=== PATIENT | female | born 1945 | race Caucasian/White ===

== ENCOUNTER 2016-06-13 04:58 | Emergency (ER) | payer OTHER ==
--- NOTE | 2016-06-13 05:21 | ED Physician Documentation ---
General Adult - HISTORIAN Historian: patient - HPI Stated Complaint: difficulty swallowing Chief Complaint: General Adult Timing: still present Severity: moderate Further Comments: yes (Pt is a 71 yo female with c/o difficulty swallowing. Pt denies having a sore throat. She states that she has had an esophageal stricture and has had it stretched in the past. Pt appears to be in no distress.) - ROS CONST: no problems EYES/ENT: other (difficulty swallowing) CVS/RESP: none GI/: none MS/SKIN/LYMPH: none - PAST HX Past History: other (Obesity, anxiety, COPD, Chronic back pain, Esophageal stricture, HTN, GERD, Hypothyroidism, Shingles, ANDRY, ) Allergies/Adverse Reactions: Allergies Allergy/AdvReac Type Severity Reaction Status Date / Time amoxicillin [Amoxicillin] Allergy Verified 06/13/16 05:22 ciprofloxacin [From Cipro] Allergy Verified 06/13/16 05:22 ciprofloxacin HCl Allergy Verified 06/13/16 05:22 [From Cipro] hydrochlorothiazide Allergy Verified 06/13/16 05:22 lisinopril Allergy Verified 06/13/16 05:22 oxycodone [Oxycodone] AdvReac Mild muscle Verified 06/13/16 05:22 stiffness - SOCIAL HX Smoking History: non-smoker - FAMILY HX Family History: No - VITAL SIGNS Vital Signs: Vital Signs Temp Pulse Resp BP Pulse Ox 155/80 12/10/15 04:05 - REVIEWED ASSESSMENTS Nursing Assessment Reviewed: Yes Vitals Reviewed: Yes Progress - Progress Progress: Solu-medrol 125 mg IM improved after 10 minutes and requesting work excuse. General Adult Physical Exam - PHYSICAL EXAM GENERAL APPEARANCE: severe obesity EENT: pharynx normal NECK: normal inspection, supple RESPIRATORY: no resp distress, chest non-tender, breath sounds normal CVS: reg rate & rhythm, heart sounds normal ABDOMEN: soft, no organomegaly, normal bowel sounds BACK: normal inspection SKIN: warm/dry, normal color EXTREMITIES: normal range of motion, edema (b/l 3+, ) NEURO: oriented X3, CN's nml as tested, motor nml, sensation nml Discharge Clincal Impression: c/o difficulty swallowing Back pain Qualifiers: Back pain location: low back pain Chronicity: chronic Back pain laterality: unspecified Sciatica presence: without sciatica Qualified Code(s): M54.5 - Low back pain Referrals: Edmond Krause MD [Primary Care Provider] - Condition: Good Disposition: 01 HOME, SELF-CARE Decision to Admit: NO Decision Time: 05:53
[2016-06-13] MEDS: methylPREDNISolone SOD SUCC 125 MG/2 ML VIAL IM ONE (05:40)
[2016-06-13 06:12] VITALS: BP 133/61
== END 2016-06-13 05:58 | disposition home or self-care (01) ==
LOC: ED 04:58
DX: R13.10 Dysphagia, unspecified (principal); M54.5 Low back pain
CPT/HCPCS: 96372; 99283; 99284; J2930

== ENCOUNTER 2016-07-31 05:41 | Emergency (ER) | payer OTHER ==
--- NOTE | 2016-07-31 05:47 | ED Physician Documentation ---
Fall - HISTORIAN Historian: patient, paramedics - [facility] Stated Complaint: shoulder pain Chief Complaint: Fall Additional Information: On way to [place] this am and felt light headed. Fell and landed on left shoulder at about 0430. Lay there till son woke just before 0530. Associated Symptoms:: no loss of consciousness Injury to Right Extremity: none - ROS CONST: no problems NEURO: denies: dizziness - PAST HX Past History: other (lymphadema. R TKR, hyst, davey, Appy. Unknown left knee surgery. ) Allergies/Adverse Reactions: Allergies Allergy/AdvReac Type Severity Reaction Status Date / Time amoxicillin [Amoxicillin] Allergy Verified 07/31/16 05:48 ciprofloxacin [From Cipro] Allergy Verified 07/31/16 05:48 ciprofloxacin HCl Allergy Verified 07/31/16 05:48 [From Cipro] hydrochlorothiazide Allergy Verified 07/31/16 05:48 lisinopril Allergy Verified 07/31/16 05:48 oxycodone [Oxycodone] AdvReac Mild muscle Verified 07/31/16 05:48 stiffness - SOCIAL HX Smoking History: non-smoker - FAMILY HX Family History: no significant history - VITAL SIGNS Vital Signs: Vital Signs Temp Pulse Resp BP Pulse Ox 133/61 06/13/16 06:09 - REVIEWED ASSESSMENTS Nursing Assessment Reviewed: Yes Vitals Reviewed: Yes Progress - Progress Progress: HISTORY: 71-year-old female with left shoulder pain after fall. COMPARISON: None available. TECHNIQUE: Three views of the left shoulder were performed. FINDINGS: No acute fracture or dislocation about the left shoulder. There are mild acromioclavicular and glenohumeral degenerative changes. IMPRESSION: No acute fracture of the left shoulder. Electronically signed on Jul 31, 2016 6:19:04 AM CDT by: Jimbo Denton ED Results Lab/Radiology - Orders Orders: ED Orders Category Date Time Status SHOULDER 2 VIEWS OR MORE [RAD] Stat Exams 07/31/16 Ordered Fall Physical Exam - Physical Exam General Appearance: alert, mild distress Head: no swelling, no obvious injury Neck: painless ROM Eye: NEWTON, lids & conjunct. nml ENT: nml external inspection Resp/CVS: chest non-tender, breath sounds nml, no resp. distress Neuro: CN's nml as tested, sensation nml, motor nml Skin: color nml, dry Back: normal inspection, no vertebral tenderness Extremities: pelvis stable (walks to BR w/o hesitation or assistance or difficulty), nml ROM (active and spontaneous ROM left shoulder w/o tenderness) Joint: joints nml, Nml gait/weight bearing (antalgic. L lower leg wrapped in maurisio wrap and dressing (said to be site of lymphedema)) Discharge Clincal Impression: Fall Qualifiers: Encounter type: initial encounter Qualified Code(s): W19.XXXA - Unspecified fall, initial encounter Contusion Qualifiers: Encounter type: initial encounter Contusion area: shoulder Laterality: left Qualified Code(s): S40.012A - Contusion of left shoulder, initial encounter Urinary tract infection Qualifiers: Urinary tract infection type: acute cystitis Hematuria presence: with hematuria Qualified Code(s): N30.01 - Acute cystitis with hematuria Additional Instructions: Ice to the sore shoulder for 30 minutes of each hour you are awake. You can also take tylenol if needed for discomfort. Condition: Good Disposition: 01 HOME, SELF-CARE Decision to Admit: NO Decision Time: 06:27
[2016-07-31 06:23] LABS: APPEARANCE,URINE CLEAR (CLEAR); COLOR,URINE YELLOW (YELLOW); OCCULT BLOOD,URINE TRACE-LYSED (NEGATIVE); PH URINE 7.5 (5.0 - 8.0); UROBILINOGEN URINE 0.2 Eu (0.2-1.0)
--- NOTE | 2016-07-31 06:24 | Diagnostic Imaging Report ---
Report Submission Date: Jul 31, 2016 6:19:04 AM CDT Patient ~ Study Name: ION RODRIGUEZ ~ Date: Jul 31, 2016 6:02:17 AM CDT ~ Modality Type: CR Gender: F ~ Description: SHOULDER : 46 ~ Institution: [facility] Physician: BRUNILDA MCKNIGHT ~ ~ ~ ~ HISTORY: ~71-year-old female with left shoulder pain after fall. COMPARISON: None available. TECHNIQUE: Three views of the left shoulder were performed. FINDINGS: No acute fracture or dislocation about the left shoulder. ~There are mild acromioclavicular and glenohumeral degenerative changes. IMPRESSION: No acute fracture of the left shoulder. ~ Electronically signed on Jul 31, 2016 6:19:04 AM CDT by: Jimbo CAMPOS
[2016-07-31] MEDS ORDERED: ACETAMINOPHEN 500 MG TABLET ONE (06:39)
[2016-07-31] MEDS: ACETAMINOPHEN 500 MG TABLET PO ONE (06:43)
[2016-07-31 06:51] VITALS: BP 176/74
== END 2016-07-31 06:38 | disposition home or self-care (01) ==
LOC: ED 05:41
DX: S40.012A Contusion of left shoulder, initial encounter (principal); W19.XXXA Unspecified fall, initial encounter; Y93.9 Activity, unspecified; Y99.9 Unspecified external cause status; N30.01 Acute cystitis with hematuria
CPT/HCPCS: 73030; 81002; 87086; 99283

== ENCOUNTER 2016-10-06 02:20 | Emergency (ER) | payer OTHER ==
[2016-10-06] MEDS ORDERED: Lidocaine 2%Visc 15ml 20 MG/ML UDC ONE (02:37)
[2016-10-06] MEDS ORDERED: MAGNESIUM HYDROXIDE/AL HYDROX 30 ML UDC PO ONE (02:37)
[2016-10-06] MEDS: MAG HYDROX/AL HYDROX/SIMETH 30 ML, Lidocaine 2%Visc 15ml 20 MG, PHENobarb/HYOSCY/ATROPI... PO ONE ×3 (02:45)
[2016-10-06] MEDS: SIMETHICONE 80 MG TAB.CHEW PO ONE (03:11)
[2016-10-06] MEDS: ONDANSETRON HCL 4 MG TAB.RAPDIS PO ONE (03:12)
--- NOTE | 2016-10-06 03:15 | ED Physician Documentation ---
GI Bleed - HISTORIAN Historian: patient - HPI Stated Complaint: Esophageal discomfort Chief Complaint: Abdominal Pain Onset: hours (0000) Timing: gradual onset, worse Severity: severe Further Comments: yes (71 year old female patient presents with complaints of GERD and indigestion. Patient reports history of 3 esophageal dilatations and hiatal hernia. C/O severe indigestion and feeling bloated. States symptoms started around midnight tonight.) - Associated Symptoms Description of Stools: denies: dark stools Abdominal Pain: burning, epigastric Other Related Symptoms: nausea - ROS CONST: no problems SKIN/LYMPH: leg swelling (chronic) CVS/RESP: none EYES/ENT: other (dry mouth) MS: none NEURO/PSYCH: denies: headache, lost feeling, confusion - PAST HX Past History: other (esophageal stricture, hiatal hernia) Other History: hypertension, other (hypothyroidism) Surgeries/Procedures: EGD (x3, with dilatation) Allergies/Adverse Reactions: Allergies Allergy/AdvReac Type Severity Reaction Status Date / Time amoxicillin [Amoxicillin] Allergy Verified 10/06/16 02:46 ciprofloxacin [From Cipro] Allergy Verified 10/06/16 02:46 ciprofloxacin HCl Allergy Verified 10/06/16 02:46 [From Cipro] hydrochlorothiazide Allergy Verified 10/06/16 02:46 lisinopril Allergy Verified 10/06/16 02:46 oxycodone [Oxycodone] AdvReac Mild muscle Verified 10/06/16 02:46 stiffness - SOCIAL HX Smoking History: non-smoker - FAMILY HX Family History: denies: none - VITAL SIGNS Vital Signs: Vital Signs Temp Pulse Resp BP Pulse Ox 98.5 F 90 20 205/94 95 10/06/16 02:21 10/06/16 02:21 10/06/16 02:21 10/06/16 02:21 10/06/16 02:21 - REVIEWED ASSESSMENTS Nursing Assessment Reviewed: Yes Vitals Reviewed: Yes Progress - Progress Progress: Patient states GI cocktail "helped some". Discussed treatment options, explained GI scope was not available tonight, offered transfer, recommended follow up with Dr Cruz's office in the morning. Zofran and simethicone given in ER. Patient very anxious. ED Results Lab/Radiology - Orders Orders: ED Orders Category Date Time Status Gi Cocktail Med 10/06/16 02:40 Ordered Mag Hydrox/Al Hydrox/Simeth [Mylanta] 30 ml Lidocaine 2%Visc 15ml [Xylocaine] 20 mg PHENobarb/HYOSCY/ATROPINE/SCOP [] 10 ml PO NOW Lidocaine 2%Visc 15ml [Xylocaine] Med 10/06/16 02:37 Discontinued 300 mg .ROUTE .STK-MED ONE Magnesium Hydroxide/Al Hydrox [Maalox] Med 10/06/16 02:37 Discontinued 30 ml PO .STK-MED ONE Ondansetron HCl Rapdis [Zofran Odt] Med 10/06/16 03:02 Discontinued 4 mg PO NOW ONE Simethicone [Gas-X] Med 10/06/16 03:02 Discontinued 160 mg PO NOW ONE Abdominal Pain Physical Exam - Physical Exam General Appearance: mild distress EENT: eye inspection normal, NEWTON RESPIRATORY: no resp distress, chest non-tender, breath sounds normal CVS: reg rate & rhythm, heart sounds normal, equal pulses, no murmur, no gallop , PMI nml, no JVD, no friction rub, 24 ABDOMEN: soft, no organomegaly, normal bowel sounds, no abdominal bruit, no distension, tenderness (epigastric), other (morbid obesity) BACK: normal inspection, no CVA tenderness SKIN: normal color, warm/dry, NR, INT, PAL, DR EXTREMITIES: non-tender, normal range of motion, no evidence of injury, edema (3 + ankle, venous status) NEURO: oriented X3, CN's nml as tested, motor nml, sensation nml Vital Signs: Vital Signs Temp Pulse Resp BP Pulse Ox 98.5 F 90 20 205/94 95 10/06/16 02:21 10/06/16 02:21 10/06/16 02:21 10/06/16 02:21 10/06/16 02:21 Discharge Clincal Impression: GERD (gastroesophageal reflux disease), Hiatal hernia with GERD Referrals: Edmond Krause MD [Primary Care Provider] - 2 Days Additional Instructions: You may want to try over the counter Simethicone (gas ex) tabs Call Dr Cruz's office in the morning for an appointment. [phone] Condition: Stable Disposition: 01 HOME, SELF-CARE Decision to Admit: NO Decision Time: 03:15
[2016-10-06 03:40] VITALS: BP 188/82
== END 2016-10-06 03:15 | disposition home or self-care (01) ==
LOC: ED 02:20
DX: K21.9 Gastro-esophageal reflux disease without esophagitis (principal); K44.9 Diaphragmatic hernia without obstruction or gangrene
CPT/HCPCS: A9270 ×3; 99283

== ENCOUNTER 2016-10-12 02:30 | Emergency (ER) | payer OTHER ==
[2016-10-12] MEDS ORDERED: LORazepam 1 MG TABLET PO ONE (02:49)
--- NOTE | 2016-10-12 03:30 | ED Physician Documentation ---
General Adult - HISTORIAN Historian: patient - HPI Stated Complaint: anxiety, esophageal discomfort Chief Complaint: General Adult Additional Information: Pt is a 71 yo female that presents with sensation of throat closing and not being able to swallow plus anxiety. Pt was seen here 6 days ago for similar c/ o. She followed up with her PCP yesterday and was set up with Dr. Baum for a potential EGD. She does have history of dilation and esophageal stricture. States she only seems to have the episodes at night. Reports tonight she felt "something on the right side" of her throat, reports it was hard to breath, states she got anxious and began shaking making things worse. Denies cough, fever/chills. She is taking Omeprazole and Ranitidine for GERD. Pt O2 saturation is 99% on RA upon arrival. Timing: better - ROS CONST: no problems EYES/ENT: other ("feels like something on the right side of my throat"). denies : problems with vision, nasal drainage, nasal congestion CVS/RESP: none GI/: none. denies: vomiting, nausea MS/SKIN/LYMPH: none NEURO/PSYCH: headache - PAST HX Past History: hypertension, other (hypothyroidism) Other History: other (GERD) Allergies/Adverse Reactions: Allergies Allergy/AdvReac Type Severity Reaction Status Date / Time amoxicillin [Amoxicillin] Allergy Verified 10/12/16 02:50 ciprofloxacin [From Cipro] Allergy Verified 10/12/16 02:50 ciprofloxacin HCl Allergy Verified 10/12/16 02:50 [From Cipro] hydrochlorothiazide Allergy Verified 10/12/16 02:50 lisinopril Allergy Verified 10/12/16 02:50 oxycodone [Oxycodone] AdvReac Mild muscle Verified 10/12/16 02:50 stiffness - SOCIAL HX Smoking History: non-smoker - FAMILY HX Family History: No - VITAL SIGNS Vital Signs: Vital Signs Temp Pulse Resp BP Pulse Ox 104 H 24 181/107 99 10/12/16 02:31 10/12/16 02:31 10/12/16 02:31 10/12/16 02:31 - REVIEWED ASSESSMENTS Nursing Assessment Reviewed: Yes Vitals Reviewed: Yes Progress - Progress Progress: Pt is resting comfortably in the room. Her vitals are stable and she does not appear toxic. She was able to easily drink part of a cup of water without choking or other complaint. Records reveal most recent dilation by Dr. Baum in July of 2014. While I do believe there is potentially another stricture that needs to be taken care with EGD and dilation, I also think anxiety is playing a large role in making the patients symptoms worse. I discussed this with her and that the only way to take care of this is to follow up outpatient with Dr. Baum. We discussed sleeping and little more upright at night and avoiding certain liquids that seem to make things worse. Pt is stable, is not in any respiratory distress and was able to tolerate liquids without difficulty. She is stable for discharge and outpatient management. Pt voices understanding and is agreeable. ED Results Lab/Radiology - Orders Orders: ED Orders Category Date Time Status LORazepam [Ativan] Med 10/12/16 02:49 Once 1 mg PO NOW ONE General Adult Physical Exam - PHYSICAL EXAM GENERAL APPEARANCE: no distress EENT: ENT inspection normal (Uvula is midline, no evidence of swelling or erythema of the posterior pharynx.), pharynx normal, NEWTON, TM's nml NECK: normal inspection (No evidence of mass or swelling on the right side. Thyroid is normal to palpation.), thyroid normal, supple. No: thyromegaly, lymphadenopathy RESPIRATORY: no resp distress, breath sounds normal CVS: reg rate & rhythm, heart sounds normal, equal pulses ABDOMEN: soft, normal bowel sounds, non-tender SKIN: warm/dry NEURO: oriented X3 Discharge Clincal Impression: Anxiety, Esophageal spasm GERD (gastroesophageal reflux disease) Qualifiers: Esophagitis presence: esophagitis presence not specified Qualified Code(s): K21.9 - Gastro-esophageal reflux disease without esophagitis Forms: Work Excuse Referrals: Edmond Krause MD [Primary Care Provider] - 2 Days Additional Instructions: Take medication as prescribed. Follow up with Dr. Baum as directed. Return to the ED should your symptoms worsen or not improve. Condition: Good Disposition: 01 HOME, SELF-CARE Decision to Admit: NO Decision Time: 03:28
[2016-10-12 03:38] VITALS: BP 163/82
== END 2016-10-12 03:25 | disposition home or self-care (01) ==
LOC: ED 02:30
DX: F41.9 Anxiety disorder, unspecified (principal); K21.9 Gastro-esophageal reflux disease without esophagitis
CPT/HCPCS: 99283

== ENCOUNTER 2016-10-23 09:29 | Day surgery (SDC) | payer OTHER ==
--- NOTE | 2016-10-25 12:07 | GI Report ---
REFERRING PHYSICIAN: Edmond Krause MD WELDER APPRENTICE: Thomas Cruz MD PROCEDURE MEDICATION: Propofol as per anesthesia. INDICATIONS: A 71-year-old woman apparently was in the emergency room recently with chest pain and difficulty swallowing. She has had a stricture and esophagitis in the past. She also has morbid obesity. She states she likes iced liquids when she eats. We have told her on a number of occasions, she should avoid cold liquids because she also a motility disorder of the esophagus. I have also talked to her about the importance of losing weight, which she has not accomplished yet either. She is referred for the above indications. She does have severe sleep apnea. PROCEDURE PERFORMED: Endoscopy with esophageal dilatation and biopsies. PROCEDURE: An Olympus video endoscope is passed through the esophagus. She does have grade 2 esophagitis. Biopsies were taken at the end of the procedure to rule out Flores's esophagus. She has a slight narrowing. Cardia of the stomach shows a small hiatal hernia. She has a lot of bile present. She has diffuse gastritis. Duodenal bulb, first and second part of duodenum exam was normal. A guidewire was placed in the stomach, a 17 mm, which is a 51-Chinese, passed over the guidewire without resistance. The endoscope was re-introduced. There was no bleeding noted. That would also make one think it is more of a motility issue. Biopsies were taken to rule out Flores's esophagus. Patient tolerated the procedure at least respiratory vargas. FINDINGS: 1. Esophagitis. Biopsied. 2. A slight stricture, dilated. 3. Esophageal motility disorder. 4. Severe bile gastritis. 5. Morbid obesity. 6. Hiatal hernia. RECOMMENDATIONS: 1. She needs to be on a PPI before meals once daily. 2. She needs to be on an antacid such as Gaviscon after meals as needed and at bedtime. 3. She needs to avoid cold liquids while eating. 4. Things will not get better without weight loss. If she could eliminate the white carbohydrates, which are just excess calories that do not have much nutritional value, eat lean meats, and eat small amounts frequently and avoid sugars, most people can achieve at least a 20 to 25 pound weight loss, which would markedly help her reflux. 5. Follow up with Dr. Krause. cc: Dr. Edmond CAMPOS
== END 2016-10-23 09:30 ==
LOC: OPSURG 09:29
PROVIDERS: ATTEND Internal Medicine Gastroenterology
DX: K20.9 Esophagitis, unspecified (principal); K22.2 Esophageal obstruction; K29.60 Other gastritis without bleeding; K44.9 Diaphragmatic hernia without obstruction or gangrene; E66.01 Morbid (severe) obesity due to excess calories; Z71.3 Dietary counseling and surveillance
CPT/HCPCS: 88305; J2704; J7120; 43248; S1016

== ENCOUNTER 2016-12-27 12:47 | Outpatient (CLI) | payer OTHER | END 2016-12-27 12:50 | LOC: RAD 12:47 | PROVIDERS: ATTEND Family Medicine | DX: M85.89 Other specified disorders of bone density and structure, multiple sites (principal); Z78.0 Asymptomatic menopausal state | CPT/HCPCS: 77080 ==

== ENCOUNTER 2017-01-12 12:41 | Outpatient (CLI) | payer OTHER | END 2017-01-12 12:42 | LOC: POD 12:41 | PROVIDERS: ATTEND Podiatrist | DX: I87.323 Chronic venous hypertension (idiopathic) with inflammation of bilateral lower extremity (principal); L84 Corns and callosities | CPT/HCPCS: G0463 ==

== ENCOUNTER 2017-02-01 23:32 | Emergency (ER) | payer OTHER ==
--- NOTE | 2017-02-01 23:48 | ED Physician Documentation ---
General Adult - HISTORIAN Historian: patient - HPI Stated Complaint: chest tightness Chief Complaint: General Adult Additional Information: 3 days of intermittent epigastric burning that radiates rebecca. Worse with deep breath. No mitigating or exacerbating factors ID'ed. . Onset: days ago - ROS CONST: no problems - PAST HX Past History: other (lymphadema.) Surgeries/Procedures: cholecystectomy, other ( R TKR, hyst, Appy. Unknown left knee surgery) Allergies/Adverse Reactions: Allergies Allergy/AdvReac Type Severity Reaction Status Date / Time amoxicillin [Amoxicillin] Allergy Verified 02/02/17 00:02 ciprofloxacin [From Cipro] Allergy Verified 02/02/17 00:02 ciprofloxacin HCl Allergy Verified 02/02/17 00:02 [From Cipro] hydrochlorothiazide Allergy Verified 02/02/17 00:02 lisinopril Allergy Verified 02/02/17 00:02 oxycodone [Oxycodone] AdvReac Mild muscle Verified 02/02/17 00:02 stiffness Home Medications: Ambulatory Orders Medication Instructions Recorded Diclofenac Sodium 75 mg PO BID 02/02/17 LORazepam [Ativan] 0.5 mg PO Q8 PRN 02/02/17 Metolazone [Zaroxolyn] 5 mg PO QD 02/02/17 Ondansetron HCl Rapdis [Zofran Odt] 4 mg PO Q6 PRN 02/02/17 - SOCIAL HX Smoking History: non-smoker - FAMILY HX Family History: Yes (heart disease in brother in 50's, DE in son who is 40) - VITAL SIGNS Vital Signs: Vital Signs Temp Pulse Resp BP Pulse Ox 163/82 10/12/16 03:37 - REVIEWED ASSESSMENTS Nursing Assessment Reviewed: Yes Vitals Reviewed: Yes Progress - Progress Progress: 0055, all pain gone Portable chest History: Chest tightness Findings: Cardiomegaly and pulmonary vascular congestion are observed. The lung bases are incompletely evaluated due to portable technique and morbid obesity. No definite pleural effusions are observed. Superior mediastinal widening is nonspecific in the setting of obesity. Impression: 1. Non diagnostic evaluation of the lung bases due to morbid obesity. 2. Mild cardiomegaly and pulmonary vascular congestion. 3. Nonspecific superior mediastinal widening given obesity. Electronically signed on Feb 02, 2017 12:57:00 AM CDT by: Eriberto Portillo Serial troponins negativee. Pain relieved with antacids, famotidine. General Adult Physical Exam - PHYSICAL EXAM GENERAL APPEARANCE: morbidly obese EENT: eye inspection normal, ENT inspection normal, pharynx normal NECK: normal inspection RESPIRATORY: no resp distress, breath sounds normal CVS: reg rate & rhythm, heart sounds normal ABDOMEN: normal bowel sounds BACK: normal inspection, no CVA tenderness, other (no vertebral tenderness) SKIN: warm/dry, normal color (except lower legs with brawny edema and erythema) EXTREMITIES: no evidence of injury NEURO: CN's nml as tested, motor nml, sensation nml Discharge Clincal Impression: GERD (gastroesophageal reflux disease) Qualifiers: Esophagitis presence: esophagitis presence not specified Qualified Code(s): K21.9 - Gastro-esophageal reflux disease without esophagitis Urinary tract infection Qualifiers: Urinary tract infection type: acute cystitis Hematuria presence: without hematuria Qualified Code(s): N30.00 - Acute cystitis without hematuria Referrals: Edmond Krause MD [Primary Care Provider] - 2 Days Additional Instructions: Be sure to take your omeprazole and ranitidine as prescribed. You can sip on Maalox every 1-2 hours if needed. You have a urinary tract infection. Take all the antibiotics as prescribed until they are completely gone. Condition: Fair Disposition: 01 HOME, SELF-CARE Decision to Admit: NO Decision Time: 02:20
[2017-02-02] MEDS ORDERED: FAMOTIDINE/PF 20 MG/2 ML VIAL IVP ONE (00:04)
[2017-02-02] MEDS ORDERED: ASPIRIN 325 MG TABLET PO ONE (00:04)
[2017-02-02] MEDS ORDERED: MAG HYDROX/AL HYDROX/SIMETH 30 ML, Lidocaine 2%Visc 15ml 20 MG, PHENobarb/HYOSCY/ATROPI... PO ONE ×3 (00:04)
[2017-02-02] MEDS ORDERED: ASPIRIN 81 MG CHEW TAB ONE (00:09)
[2017-02-02 00:13] LABS: BASOPHILS % 0.6 (0.0-1.5); EOSINOPHILS % 2.1 % (0.0-6.8); MEAN CORPUSCULAR HEMOGLOBIN 26.3 pg (28.0-34.0); MEAN CORPUSCULAR VOLUME 83.7 fl (80.0-100.0); MONOCYTES % 6.4 % (0.0-11.0); NEUTROPHILS # 6.2 # k/uL (1.4-7.7)
[2017-02-02] MEDS ORDERED: Lidocaine 2%Visc 15ml 20 MG/ML UDC ONE (00:13)
[2017-02-02] MEDS ORDERED: MAG HYDROX/AL HYDROX/SIMETH 30 ML UDC PO ONE (00:13)
[2017-02-02] MEDS ORDERED: NITROFURANTOIN 100 MG CAPSULE PO ONE ×2 (00:54→00:55)
[2017-02-02 00:58] LABS: eGFR (African) > 60; eGFR (Non-African) > 60
--- NOTE | 2017-02-02 01:08 | Diagnostic Imaging Report ---
BRUNILDA MCKNIGHT [facility] [id number] [facility] [address] [place] [address]. [id number] Report Submission Date: Feb 02, 2017 12:57:00 AM CDT Patient Study Name: ION RODRIGUEZ Date: Feb 02, 2017 12:21:28 AM CDT Modality Type: CR Gender: F Description: CHEST : 47 Institution: [facility] Physician: BRUNILDA MCKNIGHT Portable chest History: Chest tightness Findings: Cardiomegaly and pulmonary vascular congestion are observed. The lung bases are incompletely evaluated due to portable technique and morbid obesity. No definite pleural effusions are observed. Superior mediastinal widening is nonspecific in the setting of obesity. Impression: 1. Non diagnostic evaluation of the lung bases due to morbid obesity. 2. Mild cardiomegaly and pulmonary vascular congestion. 3. Nonspecific superior mediastinal widening given obesity. Electronically signed on Feb 02, 2017 12:57:00 AM CDT by: Eriberto CAMPOS
[2017-02-02 02:22] VITALS: BP 167/77
[2017-02-02 05:25] LABS: APPEARANCE,URINE CLEAR (CLEAR); COLOR,URINE YELLOW (YELLOW); OCCULT BLOOD,URINE TRACE-LYSED (NEGATIVE); UROBILINOGEN URINE 0.2 Eu (0.2-1.0)
== END 2017-02-02 02:35 | disposition home or self-care (01) ==
LOC: ED 23:32
DX: K21.9 Gastro-esophageal reflux disease without esophagitis (principal); N30.00 Acute cystitis without hematuria
CPT/HCPCS: 71010; 80053; 81002; 82553; 84484; 85025; 93005; A9270; 99283; S0028; S1016

== ENCOUNTER 2017-03-24 00:05 | Emergency (ER) | payer OTHER ==
--- NOTE | 2017-03-24 01:02 | Diagnostic Imaging Report ---
JENISE BENAVIDES [facility] [address] [facility] [address] [id number] Report Submission Date: Mar 24, 2017 12:50:06 AM FIXED WING PILOT Patient Study Name: ION RODRIGUEZ Date: Mar 24, 2017 12:32:35 AM FIXED WING PILOT Modality Type: CR Gender: F Description: SPINE : 47 Institution: [facility] Physician: JENISE BENAVIDES Lumbar spine AP and lateral Clinical history: Back pain Technique AP and lateral upright Findings: There are 5 lumbar vertebra with mild levoscoliosis. Anterior listhesis of L4 on L5 is present. There is no fracture pedicle destruction. 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 Impression: Levoscoliosis Spondylosis Electronically signed on Mar 24, 2017 12:50:06 AM FIXED WING PILOT by: Jasen CAMPOS
[2017-03-24] MEDS ORDERED: CYCLOBENZAPRINE HCL 5 MG TABLET PO ONE ×2 (01:07→01:09)
[2017-03-24] MEDS ORDERED: KETOROLAC TROMETHAMINE 60 MG/2 ML VIAL IM ONE (01:07)
--- NOTE | 2017-03-24 01:17 | ED Physician Documentation ---
Low Back Pain - HISTORIAN Historian: patient - HPI Stated Complaint: low back pain Chief Complaint: Low Back Pain/ Injury Additional Information: chronic problem History: back pain Onset: hours Duration: continues in ED Recent Injury: No Context: other (chronic pain) Where: home Other Injuries: back Severity: moderate Quality: similar- prior back pain Associated Symptoms: other (sciatica) Worsened By:: other (walking) Relieved By: nothing Further Comments: no - ROS CONST: no problems CVS/RESP: none EYES/ENT: none MS/SKIN/LYMPH: leg pain Neuro/Psych: none GI/: denies: abdominal pain, black stools - PAST HX Past History: other (see nurses notes) Surgeries/Procedures: other (see nursesnotes) Allergies/Adverse Reactions: Allergies Allergy/AdvReac Type Severity Reaction Status Date / Time amoxicillin [Amoxicillin] Allergy Verified 03/24/17 00:34 ciprofloxacin [From Cipro] Allergy Verified 03/24/17 00:34 ciprofloxacin HCl Allergy Verified 03/24/17 00:34 [From Cipro] hydrochlorothiazide Allergy Verified 03/24/17 00:34 lisinopril Allergy Verified 03/24/17 00:34 oxycodone [Oxycodone] AdvReac Mild muscle Verified 03/24/17 00:34 stiffness Home Medications: Ambulatory Orders Medication Instructions Recorded Diclofenac Sodium 75 mg PO BID 02/02/17 LORazepam [Ativan] 0.5 mg PO Q8 PRN 02/02/17 Metolazone [Zaroxolyn] 5 mg PO QD 02/02/17 Ondansetron HCl Rapdis [Zofran Odt] 4 mg PO Q6 PRN 02/02/17 - SOCIAL HX Smoking History: non-smoker Alcohol Use: none Drug Use: none - FAMILY HX Family History: no significant history - VITAL SIGNS Vital Signs: Vital Signs Temp Pulse Resp BP Pulse Ox 97.3 F L 76 16 145/83 96 03/24/17 00:10 03/24/17 02:58 03/24/17 02:58 03/24/17 02:58 03/24/17 02:58 - REVIEWED ASSESSMENTS Nursing Assessment Reviewed: Yes Vitals Reviewed: Yes Progress - Results/Orders Results/Orders: l-spine x-ray ordered - Progress Progress: pt. given 60 mg toradol and sent home with Flexeril 10 mg p.o. x 1 Critical Care Note - Critical Care Note Total Time (mins): 0 ED Results Lab/Radiology - Lab Results Lab Results: none ordered - Radiology Radiology Impressions: x-ray l-spine shows scoliosis - Orders Orders: ED Orders Category Date Time Status L SPINE 2 OR 3 VIEWS [RAD] Stat Exams 03/24/17 Completed Cyclobenzaprine HCl [Flexeril] Med 03/24/17 01:09 Discontinued 10 mg PO NOW ONE Cyclobenzaprine HCl [Flexeril] Med 03/24/17 01:07 Discontinued 5 mg PO NOW ONE Ketorolac Tromethamine [Toradol] Med 03/24/17 01:07 Discontinued 60 mg IM NOW ONE Low Back Pain/Injury - Physical Exam General Appearance: moderate distress EENT: eye inspection normal, ENT inspection normal, pharynx normal, no signs of dehydration, NEWTON, no nystagmus, TM's nml Neck: non-tender, painless ROM, trachea midline Resp/CVS: chest non-tender, breath sounds nml, heart sounds nml, no resp. distress, lungs clear, reg. rate & rhythm Abdomen: non-tender, no organomegaly Back: muscle spasm (left lumbar) Straight Leg Raising: Positive Left Neuro/Psych: oriented x3, motor nml, sensation nml Skin: warm/dry, normal color Discharge Clincal Impression: Lumbar strain Qualifiers: Encounter type: initial encounter Qualified Code(s): S39.012A - Strain of muscle, fascia and tendon of lower back, initial encounter Referrals: Edmond Krause MD [Primary Care Provider] - 2 Days Comments: Discharged in stable condition with script for Flexeril 10 mg 1 pill 3x/day #15 Condition: Stable Disposition: 01 HOME, SELF-CARE Decision to Admit: NO Decision Time: 01:16
[2017-03-24 03:03] VITALS: BP 145/83
== END 2017-03-24 01:31 | disposition home or self-care (01) ==
LOC: ED 00:05
DX: S39.012A Strain of muscle, fascia and tendon of lower back, initial encounter (principal); X58.XXXA Exposure to other specified factors, initial encounter; Y93.9 Activity, unspecified; Y99.9 Unspecified external cause status
CPT/HCPCS: 72100; J1885; 96372; 99283

== ENCOUNTER 2017-07-31 09:26 | Outpatient (CLI) | payer OTHER ==
[2017-07-31 09:46] LABS: BASOPHILS % 0.4 (0.0-1.5); EOSINOPHILS % 1.2 % (0.0-6.8); MEAN CORPUSCULAR HEMOGLOBIN 26.5 pg (28.0-34.0); MEAN CORPUSCULAR VOLUME 85.2 fl (80.0-100.0); MONOCYTES % 4.5 % (0.0-11.0); NEUTROPHILS # 6.2 # k/uL (1.4-7.7)
[2017-07-31 10:12] LABS: eGFR (African) > 60; eGFR (Non-African) 43
[2017-08-01 08:27] LABS: APPEARANCE,URINE Clear (CLEAR); COLOR,URINE Yellow (YELLOW); OCCULT BLOOD,URINE Trace-intact (NEGATIVE); UROBILINOGEN URINE 0.2 Eu (0.2-1.0)
== END 2017-07-31 09:27 ==
LOC: LAB 09:26
PROVIDERS: ATTEND Family Medicine
DX: E78.5 Hyperlipidemia, unspecified (principal); E03.9 Hypothyroidism, unspecified; I10 Essential (primary) hypertension; N34.3 Urethral syndrome, unspecified
CPT/HCPCS: 36415; 80053; 80061; 81002; 84443; 85025

== ENCOUNTER 2017-08-17 14:26 | Outpatient (CLI) | payer OTHER | END 2017-08-17 14:28 | LOC: POD 14:26 | PROVIDERS: ATTEND Podiatrist | DX: I87.323 Chronic venous hypertension (idiopathic) with inflammation of bilateral lower extremity (principal); L84 Corns and callosities | CPT/HCPCS: G0463 ==

== ENCOUNTER 2017-08-24 16:37 | Emergency (ER) | payer OTHER ==
[2017-08-24] MEDS ORDERED: METOCLOPRAMIDE HCL 5 MG TABLET PO ONE (17:04)
[2017-08-24] MEDS ORDERED: MAG HYDROX/ALUMINUM HYD/SIMETH 30 ML, Lidocaine 2%Visc 15ml 20 MG, PHENobarb/HYOSCY/ATR... PO ONE ×3 (17:04)
[2017-08-24] MEDS ORDERED: MAGNESIUM, ALUMINUM HYDROXIDE 30 ML UDC PO ONE (17:20)
[2017-08-24] MEDS ORDERED: Lidocaine 2%Visc 15ml 20 MG/ML UDC ONE (17:20)
--- NOTE | 2017-08-24 17:28 | ED Physician Documentation ---
GI Bleed - HISTORIAN Historian: patient - HPI Stated Complaint: chest pain Chief Complaint: Abdominal Pain Additional Information: Epigastric pain and pressure across upper abdomen x 3 months. Onset: days ago (90) Timing: sudden onset Context: hx of gerd and hiatal hernia, recent EGD Severity: moderate Further Comments: no - Associated Symptoms Last Bowel Movement: 08/24/17 (normal) Description of Stools: denies: dark stools, maroon, black, tarry, constipation, hard stools, diarrhea Abdominal Pain: aching, moderate, epigastric, other (burning from post. pharynx down esophagus) Emesis Description: other (none) - ROS CONST: no problems SKIN/LYMPH: leg swelling (chronic). denies: rash, swollen glands, ankle swelling CVS/RESP: none GI/: denies: rectal intercourse, problems urinating, foreign body, genital pain EYES/ENT: denies: problems with vision, sore throat, nose bleed MS: none NEURO/PSYCH: denies: headache, lost feeling, confusion, anxiety, depression, loss of power - PAST HX Past History: other (gerd, hiatal hernia) Other History: hypertension, other (anxiety, hypothyroidism) Surgeries/Procedures: other (recent EGD, colonoscopy) Immunizations: referred to PCP Allergies/Adverse Reactions: Allergies Allergy/AdvReac Type Severity Reaction Status Date / Time amoxicillin [Amoxicillin] Allergy Verified 08/24/17 17:27 ciprofloxacin [From Cipro] Allergy Verified 08/24/17 17:27 ciprofloxacin HCl Allergy Verified 08/24/17 17:27 [From Cipro] hydrochlorothiazide Allergy Verified 08/24/17 17:27 lisinopril Allergy Verified 08/24/17 17:27 oxycodone [Oxycodone] AdvReac Mild muscle Verified 08/24/17 17:27 stiffness Home Medications: Ambulatory Orders Medication Instructions Recorded Metolazone [Zaroxolyn] 5 mg PO QD 02/02/17 Ondansetron HCl Rapdis [Zofran Odt] 4 mg PO Q6 PRN 02/02/17 - SOCIAL HX Smoking History: non-smoker Alcohol Use: none Drug Use: none - FAMILY HX Family History: none - VITAL SIGNS Vital Signs: Vital Signs Temp Pulse Resp BP Pulse Ox 98.3 F 83 17 120/79 97 08/24/17 16:37 08/24/17 17:37 08/24/17 17:37 08/24/17 17:37 08/24/17 17:37 - REVIEWED ASSESSMENTS Nursing Assessment Reviewed: Yes Vitals Reviewed: Yes Progress - Results/Orders Results/Orders: ekg ordered - Progress Progress: Pt. given GI cocktail and Reglan 10 mg p.o. in ER with resolution of discomfort Critical Care Note - Critical Care Note Total Time (mins): 0 ED Results Lab/Radiology - Lab Results Lab Results: none ordered - Radiology Radiology Impressions: none ordered - Orders Orders: ED Orders Category Date Time Status Lidocaine 2%Visc 15ml [Xylocaine] Med 08/24/17 17:20 Discontinued 300 mg .ROUTE .STK-MED ONE Mag Hydrox/Al Hydrox/Simeth [Mylanta] 30 ml Med 08/24/17 17:04 Discontinued Lidocaine 2%Visc 15ml [Xylocaine] 20 mg PHENobarb/HYOSCY/ATROPINE/SCOP [] 10 ml PO NOW Magnesium Hydroxide/Al Hydrox [Maalox] Med 08/24/17 17:20 Discontinued 30 ml PO .STK-MED ONE Metoclopramide HCl [Reglan] Med 08/24/17 17:04 Discontinued 10 mg PO NOW ONE Abdominal Pain Physical Exam - Physical Exam General Appearance: alert, mild distress EENT: eye inspection normal, ENT inspection normal, pharynx normal, no signs of dehydration, [place], no nystagmus, TM's nml NECK: normal inspection, thyroid normal, supple RESPIRATORY: no resp distress, chest non-tender, breath sounds normal CVS: reg rate & rhythm, heart sounds normal, equal pulses, no murmur ABDOMEN: soft, no organomegaly, normal bowel sounds, no distension, tenderness ( epigastrium). No: mass BACK: normal inspection, no CVA tenderness SKIN: warm/dry, normal color EXTREMITIES: non-tender, normal range of motion, no evidence of injury, no edema NEURO: oriented X3, CN's nml as tested, motor nml, sensation nml, mood/affect nml, cognition normal Vital Signs: Vital Signs Temp Pulse Resp BP Pulse Ox 98.3 F 83 17 120/79 97 08/24/17 16:37 08/24/17 17:37 08/24/17 17:37 08/24/17 17:37 08/24/17 17:37 Discharge Clincal Impression: GERD with esophagitis, Hiatal hernia Referrals: Edmond Krause MD [Primary Care Provider] - 2 Days Comments: Discharged home in stable and improved condition with script for Reglan 10 mg ac and hs. Condition: Stable Disposition: 01 HOME, SELF-CARE Decision to Admit: NO Decision Time: 17:25
[2017-08-24 17:38] VITALS: BP 120/79
== END 2017-08-24 17:37 | disposition home or self-care (01) ==
LOC: ED 16:37
DX: K21.0 Gastro-esophageal reflux disease with esophagitis (principal); K44.9 Diaphragmatic hernia without obstruction or gangrene
CPT/HCPCS: 99284; A9270-GY

== ENCOUNTER 2017-11-16 12:55 | Outpatient (CLI) | payer OTHER | END 2017-11-16 13:00 | LOC: POD 12:55 | PROVIDERS: ATTEND Podiatrist | DX: I87.323 Chronic venous hypertension (idiopathic) with inflammation of bilateral lower extremity (principal); L84 Corns and callosities | CPT/HCPCS: G0463 ==

== ENCOUNTER 2018-01-14 14:43 | Emergency (ER) | payer OTHER ==
--- NOTE | 2018-01-14 15:00 | ED Physician Documentation ---
General Adult - HISTORIAN Historian: patient - HPI Stated Complaint: left knee and back pain (chronic) Chief Complaint: Lower Extremity Problem Onset: other (3 months but she has missed work due to increasing pain over the last week and today ) Timing: still present Severity: mild Further Comments: yes (She has had pain in the knee for "months" - she has had steriod injections in the knee in the past. She reports that she tried to get into the clinic today but was not able to get an appt today. She does have meds at home for pain but she did not try to take those meds today .) Last known Well Code/Unknown Code: Unknown - ROS CONST: no problems - PAST HX Past History: other (GERD, HTN, hypothyroidism, chronic pain, anxiety, COPD ) Immunizations: UTD Allergies/Adverse Reactions: Allergies Allergy/AdvReac Type Severity Reaction Status Date / Time amoxicillin [Amoxicillin] Allergy Verified 01/14/18 15:06 ciprofloxacin [From Cipro] Allergy Verified 01/14/18 15:06 ciprofloxacin HCl Allergy Verified 01/14/18 15:06 [From Cipro] hydrochlorothiazide Allergy Verified 01/14/18 15:06 lisinopril Allergy Verified 01/14/18 15:06 oxycodone [Oxycodone] AdvReac Mild muscle Verified 01/14/18 15:06 stiffness Home Medications: Ambulatory Orders Medication Instructions Recorded Ondansetron HCl Rapdis [Zofran Odt] 4 mg PO Q6 PRN 01/14/18 - SOCIAL HX Smoking History: non-smoker Alcohol Use: none Drug Use: none - FAMILY HX Family History: No - VITAL SIGNS Vital Signs: Vital Signs Temp Pulse Resp BP Pulse Ox 120/79 08/24/17 17:37 - REVIEWED ASSESSMENTS Nursing Assessment Reviewed: Yes Vitals Reviewed: Yes ED Results Lab/Radiology - Radiology Radiology Impressions: Left knee History: Pain AP and lateral projections of the left knee demonstrate severe [id number] narrowing of medial compartment joint space. There is an osteophyte along the medial femoral condyle. Lateral compartment joint space is maintained. There is moderate to severe narrowing of patellofemoral compartment joint space with associated osteophytosis. No joint effusion is seen. Impression: Advanced osteoarthritis of the left knee as described. No acute osseous abnormality. Electronically signed on Jan 14, 2018 3:47:55 PM CDT by: Eda Bates General Adult Physical Exam - PHYSICAL EXAM GENERAL APPEARANCE: no distress EENT: eye inspection normal NECK: normal inspection RESPIRATORY: no resp distress, chest non-tender, breath sounds normal CVS: reg rate & rhythm, heart sounds normal, equal pulses, no murmur ABDOMEN: soft, no distension BACK: normal inspection, no CVA tenderness SKIN: warm/dry, normal color, other (ericka color bilateral lower legs (she reports the legs are always this color) ) EXTREMITIES: non-tender, edema (bilateral leg edema (hip down to feet) 2+ Decreased ROM due to edema ) NEURO: oriented X3 Discharge Clincal Impression: Knee pain, left Qualifiers: Chronicity: acute Qualified Code(s): M25.562 - Pain in left knee Referrals: Jacobo Hinton MD [Primary Care Provider] - 2 Days Comments: 1. Medrol Dose pack - take as directed 2. Continue home meds for pain 3. Follow up with PCP or Pain management 4. Return to ER for increasing concerns Condition: Stable Disposition: 01 HOME, SELF-CARE Decision to Admit: NO Date of Decison to Admit: 01/14/18 Decision Time: 15:54
[2018-01-14 16:06] VITALS: BP 167/82
--- NOTE | 2018-01-14 16:33 | Diagnostic Imaging Report ---
JOSE EDUARDO NAVARRO [facility] [address] [facility] [address] [address] Report Submission Date: Jan 14, 2018 3:47:55 PM CDT Patient Study Name: ION RODRIGUEZ Date: Jan 14, 2018 3:15:00 PM CDT Modality Type: DX Gender: F Description: LOWER EXTREMITY : 47 Institution: [facility] Physician: JOSE EDUARDO NAVARRO Left knee History: Pain AP and lateral projections of the left knee demonstrate severe [id number] narrowing of medial compartment joint space. There is an osteophyte along the medial femoral condyle. Lateral compartment joint space is maintained. There is moderate to severe narrowing of patellofemoral compartment joint space with associated osteophytosis. No joint effusion is seen. Impression: Advanced osteoarthritis of the left knee as described. No acute osseous abnormality. Electronically signed on Jan 14, 2018 3:47:55 PM CDT by: Eda CAMPOS
== END 2018-01-14 16:04 | disposition home or self-care (01) ==
LOC: ED 14:43
DX: M25.562 Pain in left knee (principal)
CPT/HCPCS: 73560

== ENCOUNTER 2018-02-26 08:49 | Outpatient (CLI) | payer OTHER ==
--- NOTE | 2018-02-26 18:34 | Diagnostic Imaging Report ---
CARLITOS AZEVEDO [facility] [address] [address] Report Submission Date: Feb 26, 2018 3:32:47 PM CDT Patient Study Name: ION RODRIGUEZ Date: Feb 26, 2018 9:02:29 AM CDT Modality Type: US Gender: F Description: BLEV : 47 Institution: [facility] Physician: CARLITOS AZEVEDO Examination: Ultrasound vein bilaterally History: Calf discomfort Findings: Sonographic evaluation of the lower extremity venous system from the groin to the popliteal fossa inclusive bilaterally. Normal compressibility. No luminal filling defect. Normal waveforms and response to augmentation. No popliteal region fluid collection. Impression: No evidence for deep venous thrombosis. Electronically signed on Feb 26, 2018 3:32:47 PM CDT by: Douglas CAMPOS
== END 2018-02-26 11:21 ==
LOC: RAD 08:49
PROVIDERS: ATTEND Podiatrist Foot & Ankle Surgery
DX: I87.2 Venous insufficiency (chronic) (peripheral) (principal); I89.0 Lymphedema, not elsewhere classified
CPT/HCPCS: 93970

== ENCOUNTER 2018-06-06 08:57 | Emergency (ER) | payer OTHER ==
[2018-06-06 10:02] LABS: APPEARANCE,URINE CLEAR (CLEAR); COLOR,URINE YELLOW (YELLOW)
[2018-06-06 10:03] LABS: OCCULT BLOOD,URINE TRACE-INTACT (NEGATIVE)
--- NOTE | 2018-06-06 10:47 | ED Physician Documentation ---
Fall - HISTORIAN Historian: patient - HPI Stated Complaint: right hip pain Chief Complaint: Fall Additional Information: Patient presents to ED with right hip and back pain radiating to RLQ abdomen. She states the pain started this morning after she fell out of bed and landed on her left side. She was hurrying to get to the bathroom. Patient admits to dysuria, urinary frequency and urinary urgency over the past 2 days. Denies fever, chills. Onset: just prior to arrival Where: home Context: other (fell out of bed) r: mild Associated Symptoms:: no loss of consciousness Location of Pain/Injury: lower back, hip Injury to Right Extremity: none Injury to Left Extremity: hip - ROS CONST: no problems MS/SKIN/LYMPH: back pain. denies: weakness, numbness EYES/ENT: none CVS/RESP: denies: chest pain, shortness of breath GI/: denies: nausea, vomiting - PAST HX Past History: none Allergies/Adverse Reactions: Allergies Allergy/AdvReac Type Severity Reaction Status Date / Time amoxicillin [Amoxicillin] Allergy Verified 06/06/18 11:02 ciprofloxacin [From Cipro] Allergy Verified 06/06/18 11:02 ciprofloxacin HCl Allergy Verified 06/06/18 11:02 [From Cipro] hydrochlorothiazide Allergy Verified 06/06/18 11:02 lisinopril Allergy Verified 06/06/18 11:02 oxycodone [Oxycodone] AdvReac Mild muscle Verified 06/06/18 11:02 stiffness Home Medications: Ambulatory Orders Medication Instructions Recorded Cefdinir [Omnicef] 300 mg PO BID #14 capsule 06/06/18 - SOCIAL HX Smoking History: non-smoker Alcohol Use: none Drug Use: none - FAMILY HX Family History: none - VITAL SIGNS Vital Signs: Vital Signs Temp Pulse Resp BP Pulse Ox 130/58 03/08/18 16:20 - REVIEWED ASSESSMENTS Nursing Assessment Reviewed: Yes Vitals Reviewed: Yes ED Results Lab/Radiology - Lab Results Lab Results: Lab Results 06/06/18 09:51 Urine Color Yellow (YELLOW) Urine Appearance Clear (CLEAR) Urine pH 7.0 (5.0 - 8.0) Ur Specific [place] 1.020 (1.010-1.030) Urine Protein Trace mg/dL mg/dL (NEGATIVE) Urine Ketones Trace mg/dL H mg/dL (NEGATIVE) Urine Occult Blood Trace-intact H (NEGATIVE) Urine Nitrite Negative (NEGATIVE) Urine Bilirubin 1+ H (NEGATIVE) Urine Urobilinogen 1.0 Eu Eu (0.2-1.0) Ur Leukocyte Esterase 1+ H (NEGATIVE) Urine RBC 5-10 H (0-2 HPF) Urine WBC 10-25 H (0-5 HPF) Ur Squamous Epith Cells Many H (NEG-FEW) Cystine Crystals (NEGATIVE) Urine Bacteria Moderate H (NEGATIVE) Hyaline Casts 2-5 H (0-2) Urine Mucus Present H (NEGATIVE) Urine Glucose Negative mg/dL mg/dL (NEGATIVE) - Orders Orders: ED Orders Category Date Time Status L SPINE 2 OR 3 VIEWS [RAD] Stat Exams 06/06/18 Ordered PELVIS AP 1 OR 2 VIEWS [RAD] Stat Exams 06/06/18 Ordered UA W/MICRO IF INDICATED Routine Lab 06/06/18 09:51 Completed URINE CULTURE Routine Lab 06/06/18 09:51 Received Fall Physical Exam - Physical Exam General Appearance: no acute distress, alert Head: non-tender, no obvious injury Neck: non-tender, painless ROM Eye: [place] ENT: nml external inspection Resp/CVS: chest non-tender, breath sounds nml, no resp. distress Abdomen: soft, normal bowel sounds. No: tenderness Neuro: oriented x3, sensation nml, motor nml Skin: color nml, no rash Back: normal inspection, no CVA tenderness Extremities: atraumatic, pelvis stable, hips non-tender, nml ROM Joint: Nml gait/weight bearing - Roberto Coma Score Eyes Open: Spontaneous Speech: Oriented Motor: Obeys Commands Discharge Clincal Impression: Acute cystitis without hematuria Prescriptions: Cefdinir [Omnicef] 300 mg PO BID #14 capsule Referrals: Jacobo Hinton MD [Primary Care Provider] - 2 Days Additional Instructions: 1. Tylenol and/or ibuprofen as needed 2. Take antibiotics as directed. [facility] 3. Follow up with PCP within 1 week 4. Return to ED with new or worsening symptoms. Condition: Stable Disposition: 01 HOME, SELF-CARE Decision to Admit: NO Date of Decison to Admit: 06/06/18 Decision Time: 11:34
[2018-06-06 11:01] VITALS: BP 139/97
[2018-06-06] MEDS ORDERED: LIDOCAINE HCL 1% PF 50MG/5ML AMP (IM/SUTURE/PAIN CLINIC) IJ ONE (11:27)
[2018-06-06] MEDS ORDERED: cefTRIAXone SODIUM 1 GM INJ IM ONE (11:27)
[2018-06-06] MEDS ORDERED: LIDOCAINE HCL 1% PF 20MG/2ML AMP ONE (11:30)
--- NOTE | 2018-06-07 04:19 | Diagnostic Imaging Report ---
MARIZA GREENWOOD [facility] [address] [facility] [address] [address] Report Submission Date: Jun 06, 2018 11:25:21 AM WARP CLAMPER Patient Study Name: ION RODRIGUEZ Date: Jun 06, 2018 10:55:05 AM WARP CLAMPER Modality Type: DX Gender: F Description: L SPINE 2 OR 3 VIEWS : 47 Institution: [facility] Physician: MARIZA GREENWOOD Examination: Plain film lumbar spine History: PATIENT FELL ON ICE Findings: 3 views of the lumbar spine demonstrate normal height. No anterior compression. Osteopenia. Degenerative spurring. No soft tissue abnormalities. Impression: Osteopenia and degenerative spurring. No vertebral body compression deformity. Electronically signed on Jun 06, 2018 11:25:21 AM WARP CLAMPER by: Douglas CAMPOS
--- NOTE | 2018-06-07 04:19 | Diagnostic Imaging Report ---
MARIZA DOBBINSEY [facility] [address] [facility] [address] [address] Report Submission Date: Jun 06, 2018 11:24:22 AM LAUNDRY TUB MAKER Patient Study Name: ION RODRIGUEZ Date: Jun 06, 2018 10:55:05 AM LAUNDRY TUB MAKER Modality Type: DX Gender: F Description: : 47 Institution: [facility] Physician: MARIZA GREENWOOD Examination: Plain film pelvis History: PATIENT FELL ON ICE Comparison exams: None provided Findings: Single view of the pelvis demonstrates osteopenia. No fracture. No dislocation. Superior and inferior pubic rami and iliac wings are without abnormality.. Symphysis and lumbar spine degenerative changes. Impression: Osteopenia and articular degenerative changes. No acute appearing osseous process. Electronically signed on Jun 06, 2018 11:24:22 AM LAUNDRY TUB MAKER by: Douglas CAMPOS
== END 2018-06-06 11:44 | disposition home or self-care (01) ==
LOC: ED 08:57
DX: N30.01 Acute cystitis with hematuria (principal); M25.551 Pain in right hip; W06.XXXA Fall from bed, initial encounter; Y93.89 Activity, other specified; Y92.009 Unspecified place in unspecified non-institutional (private) residence as the place of occurrence of the external cause
CPT/HCPCS: 72100; 72170; 81002; 87086; 96372; 99283; 99284; J0696

== ENCOUNTER 2018-08-06 07:54 | Outpatient (CLI) | payer OTHER ==
[2018-08-06 08:46] LABS: COLOR,URINE YELLOW (YELLOW); OCCULT BLOOD,URINE NEGATIVE (NEGATIVE)
[2018-08-06 08:47] LABS: UROBILINOGEN URINE 0.2 Eu (0.2-1.0)
[2018-08-06 08:49] LABS: APPEARANCE,URINE CLEAR (CLEAR)
[2018-08-06 08:50] LABS: YEAST,URINE FEW (NEGATIVE)
== END 2018-08-06 07:56 ==
LOC: LAB 07:54
PROVIDERS: ATTEND Family Medicine
DX: N34.3 Urethral syndrome, unspecified (principal)
CPT/HCPCS: 81002

== ENCOUNTER 2018-10-22 13:48 | Outpatient (CLI) | payer OTHER ==
--- NOTE | 2018-11-13 16:00 | Diagnostic Imaging Report ---
CHUCK VÁZQUEZ [facility] [address] [facility] [address] Report Submission Date: Oct 23, 2018 9:23:55 AM CDT Patient Study Name: ION RODRIGUEZ Date: Oct 22, 2018 2:02:00 PM CDT Modality Type: DEXA\OT Gender: F Description: DEXA : 47 Institution: [facility] Physician: CHUCK VÁZQUEZ Exam: DEXA bone density study. History: Screening. The bone mineral density in the lumbar spine from L1-L4 is 0.999 grams/centimeter squared. This corresponds to a T-score of -1.5. This is considered osteopenic and carries with it a low risk for fracture. The bone mineral density in the hips is 0.818 grams/centimeter squared. This corresponds to a T-score of -1.5. This is considered osteopenic and carries with it a low risk for fracture. Impression: Osteopenia in the lumbar spine and both hips. Electronically signed on Oct 23, 2018 9:23:55 AM CDT by: Danilo CAMPOS
== END 2018-10-22 13:53 | disposition home or self-care (01) ==
LOC: RAD 13:48
PROVIDERS: ATTEND Family Medicine
CPT/HCPCS: 77080

== ENCOUNTER 2018-11-18 08:32 | Day surgery (SDC) | payer OTHER ==
--- NOTE | 2018-11-20 13:25 | GI Report ---
DATE OF PROCEDURE: 11/18/2018 REFERRING PHYSICIAN: Dr. Krause. PROCEDURE PERFORMED: Endoscopy, esophageal dilatation. SURGEON: Sharron Lucero M.D., Shailesh. INDICATION FOR PROCEDURE: The patient is a 73-year-old woman who has had esophageal strictures. She has had food bolus impacted in her esophagus. She has had recurrent difficulty swallowing. She does take a PPI daily and has reflux. Unfortunately, she has not lost weight; her BMI is 62. She is 53 and weighs 350 lbs. Biopsies in the past showed esophagitis, no obvious Barretts. She is referred for the above indications. She is an extremely high risk patient. PROCEDURE MEDICATION: Propofol, as per Anesthesia. DESCRIPTION OF PROCEDURE: An Olympus video endoscope was passed through the esophagus under direct visualization. She has grade II esophagitis and a stricture at the GE junction. The stomach, center, cardia, fundus, body and antrum showed mild gastritis. The pylorus was open. Duodenal bulb: Some duodenitis. A guidewire was placed in the stomach, and the endoscope removed, and up to a #17 which was a #51 F Savary-Mamie dilator, passed over the guidewire without resistance. The endoscope was reintroduced. There was a little friability where the stricture was stretched, but no active bleeding. The patient tolerated the procedure well. We kept her light and did her almost at a 45 degree angle. FINDINGS: 1. Esophagitis. 2. Esophageal stricture. 3. Morbid obesity. RECOMMENDATIONS: 1. She is going to need to stay on a PPI. 2. We have talked to her before that losing 10% of her body weight would markedly improve many of her health issues and they are not likely to get better without weight loss, and for a lot of people they just have to cut out most of the grain carbohydrates and sugars from their diet. 3. She is to follow up with Dr. Krause. SHARRON LUCERO M.D., F.A.CKalP. SUNDAR/goyo Job#: [id number] Cc: Dr. Krause [facility]
== END 2018-11-18 11:30 | disposition home or self-care (01) ==
LOC: OPSURG 08:32
PROVIDERS: ATTEND Internal Medicine Gastroenterology
DX: K22.2 Esophageal obstruction (principal); K29.90 Gastroduodenitis, unspecified, without bleeding; K20.9 Esophagitis, unspecified; E66.01 Morbid (severe) obesity due to excess calories
CPT/HCPCS: 43248

== ENCOUNTER 2019-01-31 11:55 | Outpatient (CLI) | payer OTHER ==
[2019-01-31 12:05] LABS: BASOPHILS % 0.5 % (0.0-1.5); NEUTROPHILS # 5.4 # k/uL (1.4-7.7)
[2019-01-31 12:08] LABS: eGFR (Non-African) 37
[2019-01-31 12:09] LABS: HDL 35 mg/dL (>40)
== END 2019-01-31 11:57 ==
LOC: LABRHC 11:55
PROVIDERS: ATTEND Family Medicine
DX: I10 Essential (primary) hypertension (principal)
CPT/HCPCS: 80053; 80061; 85025

== ENCOUNTER 2019-03-04 15:47 | Emergency (ER) | payer OTHER ==
--- NOTE | 2019-03-04 16:01 | ED Physician Documentation ---
Low Back Pain - HISTORIAN Historian: patient - HPI Stated Complaint: low back pain Chief Complaint: Low Back Pain/ Injury Additional Information: Patient presents to ED with a 3 day history of worsening low back pain. Patient has a history of chronic low back pain and has had injections in the past. Patient states the pain radiated down both legs. She denies any injury. History: back pain Onset: days ago (3) Duration: continues in ED Where: home Severity: moderate Quality: burning, sharp, similar- prior back pain Associated Symptoms: denies: fever Worsened By:: upright position Relieved By: nothing - ROS CONST: no problems CVS/RESP: denies: chest pain, shortness of breath EYES/ENT: none MS/SKIN/LYMPH: back pain Neuro/Psych: denies: headache GI/: denies: abdominal pain - PAST HX Past History: back pain. denies: back injury Surgeries/Procedures: denies: back surgery Allergies/Adverse Reactions: Allergies Allergy/AdvReac Type Severity Reaction Status Date / Time amoxicillin [Amoxicillin] Allergy Verified 06/06/18 11:02 ciprofloxacin [From Cipro] Allergy Verified 06/06/18 11:02 ciprofloxacin HCl Allergy Verified 06/06/18 11:02 [From Cipro] hydrochlorothiazide Allergy Verified 06/06/18 11:02 lisinopril Allergy Verified 06/06/18 11:02 oxycodone [Oxycodone] AdvReac Mild muscle Verified 06/06/18 11:02 stiffness Home Medications: Ambulatory Orders Medication Instructions Recorded Cefdinir [Omnicef] 300 mg PO BID #14 capsule 06/06/18 Baclofen 10 mg PO Q12 PRN #20 tablet 03/04/19 Methylprednisolone [Medrol] 4 mg PO DIRECTED #1 tab.ds.pk 03/04/19 - SOCIAL HX Smoking History: non-smoker Alcohol Use: none Drug Use: none - FAMILY HX Family History: none - VITAL SIGNS Vital Signs: Vital Signs Temp Pulse Resp BP Pulse Ox 97.9 F 103 H 24 148/78 95 03/04/19 15:50 03/04/19 15:50 03/04/19 15:50 03/04/19 15:50 03/04/19 15:50 - REVIEWED ASSESSMENTS Nursing Assessment Reviewed: Yes Vitals Reviewed: Yes ED Results Lab/Radiology - Orders Orders: ED Orders Category Date Time Status Ketorolac Tromethamine [Toradol] Med 03/04/19 16:08 Once 60 mg IM NOW ONE Orphenadrine Citrate [Norflex] Med 03/04/19 16:08 Once 60 mg IM NOW ONE methylPREDNISolone SOD SUCC [SOLU-Medrol] Med 03/04/19 16:08 Once 125 mg IM NOW ONE Low Back Pain/Injury - Physical Exam General Appearance: no acute distress, alert EENT: [place] Neck: non-tender, painless ROM Resp/CVS: chest non-tender, breath sounds nml, heart sounds nml Abdomen: non-tender Back: non-tender, muscle spasm (left posterior iliac crest ) Straight Leg Raising: Negative Left, Negative Right Neuro/Psych: oriented x3, motor nml, reflexes nml Skin: warm/dry, normal color Extremities: non-tender, no evidence of injury Discharge Clincal Impression: Acute exacerbation of chronic low back pain Prescriptions: Baclofen 10 mg PO Q12 PRN #20 tablet PRN Reason: muscle spasm/pain Methylprednisolone [Medrol] 4 mg PO DIRECTED #1 tab.ds.pk Referrals: Edmond Krause MD [Primary Care Provider] - 2 Days Additional Instructions: 1. Start Medrol dose pack tomorrow 2. Take Baclofen every 12 hours as needed for muscle pain/spasm. This medication may make you sleepy and/or dizzy. 3. A referral has been sent to pain management. They will be contacting you with appointment information 4. Follow up with PCP within 1 week 5. Return to ER for new or worsening symptoms Condition: Stable Disposition: 01 HOME, SELF-CARE Decision to Admit: NO Date of Decison to Admit: 03/04/19 Decision Time: 16:13
[2019-03-04] MEDS: ORPHENADRINE CITRATE 60 MG/2 ML ML IM ONE (16:24)
[2019-03-04] MEDS: KETOROLAC TROMETHAMINE 60 MG/2 ML VIAL IM ONE (16:24)
[2019-03-04] MEDS: methylPREDNISolone SOD SUCC 125 MG/2 ML VIAL IM ONE (16:24)
[2019-03-04 17:15] VITALS: BP 150/89
== END 2019-03-04 16:53 | disposition home or self-care (01) ==
LOC: ED 15:47
DX: G89.29 Other chronic pain (principal); M54.5 Low back pain
CPT/HCPCS: 96372; 99283; 99284; J1885; J2360; J2930

== ENCOUNTER 2019-03-12 15:40 | Outpatient (CLI) | payer OTHER ==
[2019-03-12 15:52] LABS: eGFR (Non-African) 42
== END 2019-03-12 15:45 ==
LOC: LABRHC 15:40
PROVIDERS: ATTEND Family Medicine
DX: I10 Essential (primary) hypertension (principal)
CPT/HCPCS: 80053

== ENCOUNTER 2019-03-16 01:41 | Emergency (ER) | payer OTHER ==
[2019-03-16] MEDS: MAG HYDROX/ALUMINUM HYD/SIMETH 30 ML, Lidocaine 2% Viscous 15 ML PO ONE ×2 (02:00)
--- NOTE | 2019-03-16 02:19 | ED Physician Documentation ---
GI Bleed - HISTORIAN Historian: patient - HPI Chief Complaint: General Adult Additional Information: 73 year old female presents via [facility] with c/o throat pain- states that she had her esophagus stretched this year- she states that she ate late this evening and felt like it was still in her throat. She is able to swallow without difficulty; c/o back pain with spasms. Denies any CP, soa, n/v/d. Onset: hours Timing: gradual onset Severity: mild - Associated Symptoms Description of Stools: denies: diarrhea Abdominal Pain: none Emesis Description: denies: blood Description of Rectal Bleed: denies: bloody diarrhea Other Related Symptoms: denies: nausea, vomiting - ROS CONST: no problems SKIN/LYMPH: leg swelling (chronic) CVS/RESP: none EYES/ENT: denies: sore throat MS: none NEURO/PSYCH: denies: confusion - PAST HX Past History: denies: diverticulitis Other History: hypertension Allergies/Adverse Reactions: Allergies Allergy/AdvReac Type Severity Reaction Status Date / Time hydroxyzine Allergy Mild Verified 03/16/19 01:48 amoxicillin [Amoxicillin] Allergy Verified 03/16/19 01:48 ciprofloxacin [From Cipro] Allergy Verified 03/16/19 01:48 ciprofloxacin HCl Allergy Verified 03/16/19 01:48 [From Cipro] hydrochlorothiazide Allergy Verified 03/16/19 01:48 lisinopril Allergy Verified 03/16/19 01:48 oxycodone [Oxycodone] AdvReac Mild muscle Verified 03/16/19 01:48 stiffness Home Medications: Ambulatory Orders Medication Instructions Recorded Cefdinir [Omnicef] 300 mg PO BID #14 capsule 06/06/18 Alendronate Sodium [Fosamax] 70 mg PO WEEK 03/16/19 Ondansetron HCl 4 mg PO Q6 PRN 03/16/19 Ranitidine HCl [Acid Narcotics Detective] 150 mg PO BID 03/16/19 Tramadol HCl [Ultram] 50 mg PO Q6 PRN 03/16/19 - SOCIAL HX Smoking History: non-smoker Alcohol Use: none Drug Use: none - FAMILY HX Family History: none - VITAL SIGNS Vital Signs: Vital Signs Temp Pulse Resp BP Pulse Ox 98.5 F 89 16 115/78 96 03/16/19 02:30 03/16/19 02:30 03/16/19 02:30 03/16/19 02:30 03/16/19 02:30 - REVIEWED ASSESSMENTS Nursing Assessment Reviewed: Yes Vitals Reviewed: Yes ED Results Lab/Radiology - Orders Orders: ED Orders Category Date Time Status Mag Hydrox/Aluminum Hyd/Simeth [Mylanta] 30 ml Med 03/16/19 01:59 Discontinued Lidocaine 2% Viscous [Xylocaine 2% Viscous] 15 ml PO NOW Abdominal Pain Physical Exam - Physical Exam General Appearance: no acute distress, alert EENT: eye inspection normal, ENT inspection normal, pharynx normal, no signs of dehydration, NE[place]ON NECK: normal inspection RESPIRATORY: breath sounds normal CVS: heart sounds normal ABDOMEN: soft, normal bowel sounds BACK: normal inspection SKIN: warm/dry, normal color EXTREMITIES: non-tender, normal range of motion NEURO: oriented X3, CN's nml as tested, motor nml, sensation nml, mood/affect nml, cognition normal Vital Signs: Vital Signs Temp Pulse Resp BP Pulse Ox 98.5 F 89 16 115/78 96 03/16/19 02:30 03/16/19 02:30 03/16/19 02:30 03/16/19 02:30 03/16/19 02:30 Discharge Clincal Impression: GERD (gastroesophageal reflux disease) Referrals: Edmond Krause MD [Primary Care Provider] - 2 Days Condition: Good Disposition: 01 HOME, SELF-CARE Decision to Admit: NO Decision Time: 02:20
[2019-03-16 02:47] VITALS: BP 115/78
== END 2019-03-16 02:35 | disposition home or self-care (01) ==
LOC: ED 01:41
DX: K21.9 Gastro-esophageal reflux disease without esophagitis (principal)
CPT/HCPCS: 99282; 99283; A9270-GY

== ENCOUNTER 2019-04-01 12:47 | Outpatient (CLI) | payer OTHER ==
--- NOTE | 2019-04-02 03:05 | Diagnostic Imaging Report ---
PATIENT MR#: [id number] PATIENT PATIENT NAME: ION RODRIGUEZ DATE OF : 1945 REFERRING PHYSICIAN: Renae Mart EXAM DATE: 04/01/2019 ACCESSION NUMBER: [id number] EXAM DESCRIPTION: T SPINE 3 VIEWS HISTORY: UPPER AND LOWER BACK PAIN COMPARISON: No relevant comparison is available at the time of interpretation. T-SPINE XRAY, 3 Views: Vertebral bodies: Chronically decreased heights of the mid thoracic vertebral bodies. Disc spaces: Multilevel degenerative spondylosis in the form of disc narrowing and endplate osteophyt es. Alignment: Moderate thoracic dextrocurvature centered at T6. Normal thoracic kyphosis without listhes is. IMPRESSION: Moderate thoracic dextroscoliosis with degenerative spondylosis. Read by: Dr. Pedro Greene Transcribed by: Pedro Greene Transcribed Date: 04/02/2019 2:58:57 AM Electronically signed by: Dr. Pedro Greene Date signed: 04/02/2019 3:04:58 AM
--- NOTE | 2019-04-02 04:41 | Diagnostic Imaging Report ---
PATIENT MR#: [id number] PATIENT PATIENT NAME: ION RODRIGUEZ DATE OF : 1945 REFERRING PHYSICIAN: Renae Mart EXAM DATE: 04/01/2019 ACCESSION NUMBER: [id number] EXAM DESCRIPTION: L SPINE 6 VIEWS CLINICAL HISTORY: CHRONIC LUMBAGO, LUMBAR RADIULITIS VS RADIULOPATHY COMPARISON: June 06, 2018. L-SPINE XRAY, 6 views including obliques and flexion - extension: Vertebral bodies: No compression deformities. The bones appear somewhat osteopenic. Disc spaces: Mild degenerative disc narrowing at L3-4, L4-5 and L5-S1. Alignment: Moderate lumbar levocurvature centered at L2. Normal lumbar lordosis. 5 mm grade 1 anterol isthesis of L4 over L5 which appears stable in flexion extension. Facets: Degenerative arthrosis at L4-5 and L5-S1. IMPRESSION: 1. Moderate lumbar levocurvature. 2. Mild degenerative disc narrowing at L3-4, L4-5 and L5-S1. 3. Stable grade 1 anterolisthesis of L4 over L5 on the basis of facet arthrosis. 4. Relatively stable appearance compared to prior. Read by: Dr. Pedro Greene Transcribed by: Pedro Greene Transcribed Date: 04/02/2019 4:40:37 AM Electronically signed by: Dr. Pedro Greene Date signed: 04/02/2019 4:40:37 AM
--- NOTE | 2019-04-02 04:51 | Diagnostic Imaging Report ---
PATIENT MR#: [id number] PATIENT PATIENT NAME: ION RODRIGUEZ DATE OF : 1945 REFERRING PHYSICIAN: Renae Mart EXAM DATE: 04/01/2019 ACCESSION NUMBER: [id number] EXAM DESCRIPTION: PELVIS AP 1 OR 2 VIEWS CLINICAL HISTORY: CHRONIC LUMBAGO, LUMBAR RADIULITIS VS RADIULOPATHY COMPARISON: June 06, 2018. PELVIS XRAY, FRONTAL VIEW: Pelvic bone: Intact appearance. Mild sclerosis of the pubic symphysis. Pelvic soft tissue: No calcifications along the expected course of the ureters. Hips: No fracture or dislocation. IMPRESSION: Stable appearance of pubic symphysis. Read by: Dr. Pedro Greene Transcribed by: Pedro Greene Transcribed Date: 04/02/2019 4:50:35 AM Electronically signed by: Dr. Pedro Greene Date signed: 04/02/2019 4:50:35 AM
--- NOTE | 2019-04-16 08:00 | CONSULTATION REPORT ---
DATE OF VISIT: 04/01/2019 CHIEF COMPLAINT: Low back pain. HPI: Ms. Blake is a 74-year-old female patient here for evaluation of her low back pain. The patient complains of low back pain for approximately the last five years, however worse in the last six months. She describes her low back pain as constant, aching, sharp to shooting at times. She has radiation around to bilateral hips, right greater than left. The patient complains of right lower extremity numbness and tingling mostly in the calf. She denies any lower extremity weakness, urinary/bowel incontinence or saddle anesthesia. The patient tells me that 90 percent of her pain is localized to her low back while only 10 percent is in her hips and legs. Her pain is worse with walking, standing, or sitting for too long. Her pain is improved with Aleve, resting, hot packs/cold packs. Previous treatments include what the patient describes as epidural steroid injections in 2013/2014 that did seem to help her symptoms. The patient has not had any recent physical therapy, nor has she had career development consultant. PFSH: Medical History: Anxiety/Depression Arthritis Back pain Esophageal dysmotility Gall bladder disease Irregular heart beat GERD Hypertension Hyperlipidemia Irritable bowel syndrome Joint pain including knees, ankles, hips and feet. Migraine headaches Sleep apnea Hypothyroidism Urinary stress incontinence Patient uses ambulation assistance with a walker or cane. Surgical History: Appendectomy Hysterectomy Cholecystectomy Tonsillectomy D&C x 2 Esophageal dilatation x 5 Social History: Marital status . Occupation retired. Seven pregnancies, 5 live births and 2 miscarriages/abortions. Tobacco use denies. ETOH denies. Recreational drug use denies. Family History: Mother hypertension, AR, heart disease, hyperlipidemia, rheumatic fever, CVA. Maternal grandmother cancer, hypertension. Maternal grandfather AR. Paternal grandfather AR. Daughter cancer unspecified type. Sibling x 2 rheumatic fever. DRUG ALLERGIES: Amoxicillin Lisinopril Tramadol Hydrochlorothiazide Ciprofloxacin Hypoxine Oxycodone CURRENT MEDICATIONS: Alendronate 70 mg 1tab p.o. q week Amlodipine 10 mg 1tab p.o. q day. Cetirizine 10 mg 1tab p.o. q day. Diclofenac 75 mg 1tab p.o. b.i.d. Lasix 40 mg 1tab p.o. q a.m. 1/2-tab p.o. q p.m. Hydroxyzine 25 mg 1tab q 6 hours p.r.n. Levothyroxine 150 mcg 1tab p.o. q day. Losartan potassium 100 mg 1tab p.o. q day. Lovastatin 20 mg 1tab p.o. q day. Metoclopramide 10 mg 1tab p.o. before meals and q h.s. Omeprazole 40 mg 1tab p.o. q day. REVIEW OF SYSTEMS: A complete 14-point review of systems was completed and negative for all except for the following positives: Constitutional: fatigue/weakness, weight gain/loss, decreased appetite. ENT: bleeding gums, hoarseness, constant throat clearing, difficulty swallowing, nasal congestion. Eyes: blurred vision, glasses. CV: shortness of breath with activity, shortness of breath at rest, leg swelling. Respiratory: wheezing/asthma, oxygen use p.r.n. GI: nausea/vomiting, heartburn, constipation, stomach pain, hiatal hernia. : difficult urination, painful urination, frequent urination, history of kidney stones and frequent night urination. Psych: anxiety/depression. Neurologic: headaches, dizziness and leg weakness. Musculoskeletal: low back pain. IMAGING REVIEWED: DEXA bone density study here at [place] 10/22/2018 Impression: Osteopenia in lumbar spine and bilateral hips. Lumbar spine 3 view on 06/06/2018 here at [place] after fall on ice Impression: Osteopenia and degenerative spurring. No vertebral body compression deformities. AP Pelvis 06/06/2018 in [place] Impression: Osteopenia and articular degenerative changes. No acute appearing osseous processes. PHYSICAL EXAMINATION: General: This is an elderly female patient presenting in no acute distress at the time of exam. Vital Signs: Height is 5 foot 4 inches tall. Weight 343 pounds. Temperature 98.4. Pulse 102. Respiratory rate 21. Blood pressure 158/80. SaO2 95% on room air. Pain is rated 7/10 today. Psych: Alert and oriented x3. Calm, pleasant and cooperative. HEENT: Normocephalic and atraumatic. Pupils are equal and round without miosis. Sclerae are clear. Trachea is midline. No lymphadenopathy or thyromegaly. Cardiovascular: Normal S1, S2. Regular rate and rhythm. No gallops, murmurs or rubs. Pulmonary: Nonlabored respirations at rest. Clear to auscultation bilaterally throughout. GI: The patient has an obese abdomen that is nontender and nondistended with bowel sounds present in all four quadrants. : Deferred. Musculoskeletal: On visualization of the lumbar spine there are no obvious deformities. The patient is able to achieve lumbar trunk flexion to 90 degrees. The patient has full extension with low back pain. Bilateral Kemps is positive for axial low back pain only. Seated straight leg raise is negative. The patient has generalized tenderness to palpation in the lower thoracic and upper lumbar spine. She has less tenderness over the low lumbar spine. The patient is tender to palpation over bilateral SI joints and greater trochanteric bursa. Bilateral lower extremity strength testing is graded 5/5 in hip flexion, knee extension, knee flexion, dorsiflexion and 4/5 in plantar flexion. Neuro: Cranial nerves II-XII are grossly intact. Deep tendon reflex right patellar is graded 2+ and left is graded 1+. Sensation is intact to light touch in bilateral lower extremities. ASSESSMENT: 1. Chronic lumbago. 2. Lumbar radiculitis versus radiculopathy. 3. Morbid obesity. 4. Muscle spasms. 5. Thoracic spine pain. 6. Bilateral sacroiliitis. 7. Bilateral greater trochanteric bursitis. PLAN: 1. X-ray AP pelvis. 2. X-ray lumbar spine with extension/flexion. 3. Thoracic spine series x-ray. 4. MRI lumbar spine without contrast. 5. The patient is to continue home exercise program for low back pain. 6. I am going to add tizanidine 4 mg 1/2 to 1-tab p.o. b.i.d. p.r.n. muscle spasms dispense #60 with no refills. 7. I am going to refer the patient to Bariatrics. 8. Patient is to follow up in one month or sooner. The patient did verbalize understanding and agreed to the current treatment plan. Renae Mart NP Nurse Practitioner RAJAT/merna JOB#: [id number] cc: Dereje Rahman
== END 2019-04-01 13:47 ==
LOC: OUT 12:47
PROVIDERS: ATTEND Nurse Practitioner Adult Health
DX: M62.838 Other muscle spasm (principal); E66.01 Morbid (severe) obesity due to excess calories; M46.1 Sacroiliitis, not elsewhere classified; M70.62 Trochanteric bursitis, left hip; M70.61 Trochanteric bursitis, right hip; G89.29 Other chronic pain; M54.5 Low back pain
CPT/HCPCS: 72072; 72170; 99203; G0463

== ENCOUNTER 2019-05-13 13:46 | Outpatient (CLI) | payer OTHER ==
--- NOTE | 2019-06-03 11:23 | OP Clinic Progress Note ---
DATE OF SERVICE: 05/13/2019 CHIEF COMPLAINT: Low back pain. HISTORY OF PRESENT ILLNESS: Ms. Blake is a 74-year-old female patient here for follow-up of low back pain. The patient complains of low back pain for approximately the last 5 years, however, worse in the last 6 or so months. She describes her low back pain as constant, aching, sharp to shooting at times. She has radiation around to bilateral hips, right greater than left. The patient complains of right lower extremity numbness and tingling mostly in the calf. She denies any lower extremity weakness, urinary or bowel incontinence or saddle anesthesia. Ninety per cent (90%) of her pain is localized to her low back while only 10% is in her hips and legs. Her pain is worse with walking, standing or sitting for too long. Her pain is improved with Aleve, resting, hot packs/cold packs. Previous treatments include what the patient describes as epidural steroid injections in 2013/2014 that did seem to help her symptoms. The patient has not had any recent physical therapy nor has she had reproductive healthcare assistant. She did start a home exercise program as I recommended at our last visit, however. She has not noticed much improvement in her pain symptoms with this. The patient continues [id number] anti-inflammatories as well as tizanidine for her muscle spasms with improvement. She denies any medication side effects or concerns at this time. PMFSH: Reviewed from 04/01/2019 and is unchanged. REVIEW OF SYSTEMS: Reviewed from 04/01/2019 and is unchanged. IMAGING REVIEWED: The first exam was on 04/01/2019 and it was a lumbar spine x-ray series completed here at [facility]. Impression: 1. Moderate lumbar levocurvature. 2. Mild degenerative disc narrowing at L3-L4, L4-L5 and L5-S1. 3. Stable grade 1 anterolisthesis of L4 over L5 on the basis of facet arthrosis. 4. Degenerative facet arthrosis at L4-L5 and L5-S1. The second study, again performed on 04/01/2019, was an AP pelvis. Impression: 1. Stable appearance of pubic symphysis and no fracture or dislocation of the hips. The next study, again performed on 04/01/2019 at [facility] is a thoracic spine series. Impression: 1. Moderate thoracic dextroscoliosis with multilevel degenerative spondylosis. The next study was an MRI of the lumbar spine without contrast, performed on 04/12/2019 at [facility] in [place], [place]. Impression: 1. Lumbar spondylosis with moderate spinal canal stenosis at L4-L5 and mild spinal canal stenosis at L3-L4. 2. Spondylolisthesis at L4-L5. 3. Disc protrusions at L3-L4 and L4-L5. 4. Foraminal narrowing at L3-L4, L4-L5 and L5-S1. PHYSICAL EXAMINATION: General: This is an elderly, morbidly obese female patient presenting in no acute distress at the time of exam. Vital Signs: See scanned documentation in EHR. HEENT: She is normocephalic and atraumatic. Pupils are equal and round, without miosis. Musculoskeletal: On visualization of the lumbar spine there is no obvious deformities. The patient is able to achieve lumbar trunk flexion to 90 degrees and full extension with low back pain. Bilateral Kemps is positive for axial low back pain only. Seated straight leg raise is negative. The patient has tenderness to palpation generalized over the lumbar facets, worse at L3-L4, L4- L5 and L5-S1. She also has tenderness to palpation of her bilateral SI joints and greater trochanteric bursae. Neurologic: Cranial nerves 2-12 are grossly intact. Deep tendon reflexes: Right patellar is graded 2+ and on the left is graded 1+. Sensation is intact to light touch in bilateral lower extremities. ASSESSMENT: 1. Chronic lumbago. 2. Lumbar radiculitis versus lumbar radiculopathy likely related to facet arthritis. 3. Morbid obesity. 4. Muscle spasms. 5. Thoracic spine pain. 6. Bilateral sacroiliitis. 7. Bilateral greater trochanteric bursitis. 8. Lumbar degenerative disc disease. 9. Lumbar facet arthrosis. PLAN: 1. Today I have ordered facet joint injections at the L3-L4, L4-L5 and L5-S1 levels with Dr. Gaxiola. 2. I have refilled the patients tizanidine 4 mg one-half to 1 tab p.o. b.i.d. p.r.n. muscle spasms, dispense #60 with 2 refills. 3. I am referring the patient for a bariatric consult. 4. The patient is to continue her home exercise program. 5. The patient is to follow up in 1 month or sooner if needed. The patient did verbalize understanding and agrees with the current treatment plan. Thank you for your kind referral. Sincerely, Renae Mart NP Nurse Practitioner RAJAT/goyo JOB#: [id number] cc: Dr. Edmond CAMPOS
== END 2019-05-13 14:46 ==
LOC: OUT 13:46
PROVIDERS: ATTEND Nurse Practitioner Adult Health
DX: M54.5 Low back pain (principal); E66.01 Morbid (severe) obesity due to excess calories; M70.62 Trochanteric bursitis, left hip; M70.61 Trochanteric bursitis, right hip; Y93.9 Activity, unspecified; M51.16 Intervertebral disc disorders with radiculopathy, lumbar region
CPT/HCPCS: G0463